=== PATIENT | female | born 1960 | race Asian ===

== ENCOUNTER 2024-03-11 08:41 | Day surgery (SDC) | payer OTHER ==
[~2024-03-11] VITALS: Ht 152.4 cm; Wt 49.9 kg
[2024-03-11] MEDS ORDERED: MIDAZOLAM 2 MG/2 ML VIAL ONE (09:57)
[2024-03-11] MEDS ORDERED: fentaNYL citrate 0.05 MG/ML VIAL ONE (09:57)
[2024-03-11] MEDS: MIDAZOLAM 2 MG/2 ML VIAL IVP ONE (10:44)
== END 2024-03-11 11:52 | disposition home or self-care (01) ==
LOC: MDS 08:41 → MMU 08:47 → MDS 11:52
PROVIDERS: ATTEND Internal Medicine Gastroenterology
DX: K21.9 Gastro-esophageal reflux disease without esophagitis (principal); E78.00 Pure hypercholesterolemia, unspecified; Z87.442 Personal history of urinary calculi; Z90.49 Acquired absence of other specified parts of digestive tract; Z80.0 Family history of malignant neoplasm of digestive organs; Z91.011 Allergy to milk products; Z79.899 Other long term (current) drug therapy; Z98.890 Other specified postprocedural states
CPT/HCPCS: 43235; J2250; J3010